=== PATIENT | male | born 1990 | race Caucasian/White ===

== ENCOUNTER 2017-10-02 23:29 | Emergency (ER) | payer BC ==
--- NOTE | 2017-10-02 23:55 | RAD ---
LEFT INDEX FINGER: 10/02/17 HISTORY: Injury to left index finger. FINDINGS/IMPRESSION: There is evidence of soft tissue injury. There is no evidence of fracture or osseous abnormality. POS: [facility]
[2017-10-03] MEDS ORDERED: Lidocaine 2% PF 5 ML VIAL ONE (00:08)
[2017-10-03] MEDS ORDERED: Lidocaine 1% (PF) 30 ML VIAL ONE (00:09)
[2017-10-03] MEDS ORDERED: Adacel (T-DAP) 0.5 ML VIAL ONE (00:31)
== END 2017-10-03 02:31 | disposition home or self-care (01) ==
LOC: ERS 23:29
DX: S67.191A Crushing injury of left index finger, initial encounter (principal); S61.211A Laceration without foreign body of left index finger without damage to nail, initial encounter; W23.0XXA Caught, crushed, jammed, or pinched between moving objects, initial encounter
CPT/HCPCS: 12004; 90471; 90715; J2001